=== PATIENT | female | born 1955 | race Caucasian/White ===

== ENCOUNTER 2020-08-02 18:54 | Emergency (ER) | payer OTHER, BC ==
[~2020-08-02] VITALS: Ht 165.1 cm; Wt 59.0 kg
[2020-08-02 19:03] VITALS: BP_SYST 108
[2020-08-02] MEDS ORDERED: ACETAMINOPHEN 500 MG TABLET PO ONE (19:30)
[2020-08-02] MEDS ORDERED: LIDOCAINE 1%, 20 ML MDV 20 ML ONE (19:49)
[2020-08-02] MEDS ORDERED: LIDOCAINE MPF 1% 50 MG/5 ML AMP INJ ONE (20:15)
[2020-08-02] MEDS ORDERED: DIPH-TET-PERTUS Vaccine 0.5 ML VIAL (ADACEL) I.M. ONE (20:15)
[2020-08-02 20:33] VITALS: BP_SYST 108
[2020-08-02] MEDS ORDERED: BACITRACIN 1 GM OINT TP ONE (20:46)
== END 2020-08-02 20:33 | disposition home or self-care (01) ==
LOC: SED 18:54
DX: S01.81XA Laceration without foreign body of other part of head, initial encounter (principal); I10 Essential (primary) hypertension; F10.10 Alcohol abuse, uncomplicated; W18.39XA Other fall on same level, initial encounter; Y93.89 Activity, other specified; Y92.89 Other specified places as the place of occurrence of the external cause; Y99.8 Other external cause status
CPT/HCPCS: 12013; 70450; 76376; 90471; 90715; 99284; J2001

== ENCOUNTER 2021-05-04 08:53 | Emergency (ER) | payer BC, OTHER ==
[~2021-05-04] VITALS: Ht 165.1 cm; Wt 59.0 kg
[2021-05-04 08:53] VITALS: BP_SYST 160
--- NOTE | 2021-05-04 08:53 | NUR ---
BROUGHT BACK TO BED #7 AND TRIAGED. REPORT GIVEN TO MERLYN
--- NOTE | 2021-05-04 09:00 | NUR ---
Pt brought by self, A&Ox4, pt presents to ER with R wrist and L thumb pain after falling few days ago while playing basketball, no open injuries noted, will cont to monitor
--- NOTE | 2021-05-04 09:10 | NUR ---
Dr Jeff evaluating patient at bedside
[2021-05-04] MEDS ORDERED: HYDR-3917 PO (09:28)
[2021-05-04] MEDS ORDERED: IBUP-1969 PO (09:28)
[2021-05-04 09:40] VITALS: BP_SYST 152
--- NOTE | 2021-05-04 09:41 | NUR ---
Patient given written and verbal discharge instructions and verbalizes understanding. ER MD discussed with patient the results and treatment provided. Patient in stable condition. ID arm band removed. Rx of Hydrocodone and Ibuprofen given. Patient educated on pain management and to follow up with PMD. Pain Scale 3/10 tolerable for patient. Opportunity for questions provided and answered. Medication side effect fact sheet provided.
== END 2021-05-04 09:41 | disposition home or self-care (01) ==
LOC: SED 08:53
DX: S52.502A Unspecified fracture of the lower end of left radius, initial encounter for closed fracture (principal); S62.512A Displaced fracture of proximal phalanx of left thumb, initial encounter for closed fracture; I10 Essential (primary) hypertension; W18.39XA Other fall on same level, initial encounter; Y93.89 Activity, other specified; Y92.89 Other specified places as the place of occurrence of the external cause; Y99.8 Other external cause status
CPT/HCPCS: 73140-TC; 99284

== ENCOUNTER 2022-08-20 05:14 | Inpatient (IN) | payer OTHER ==
[~2022-08-20] VITALS: Ht 165.1 cm; Wt 61.2 kg
[~2022-08-20 05:14] MED LIST: HYDR-3917 PO; IBUP-1969 PO
[2022-08-20 06:44] LABS: CALCIUM 9.1 mg/dL (8.4-11.0); CREATININE 1.1 mg/dL (0.55-1.30)
[2022-08-20 06:48] LABS: INR 0.9 (0.8-1.2); PROTHROMBIN TIME 9.6 SECS (9.5-12.5)
[2022-08-20] MEDS ORDERED: CEFAZOLIN SOD 2 GM in D5W 50 ML IV ONE (07:00)
[2022-08-20 07:24] LABS: BASOPHILS % (AUTO) 0.4 % (0.0-2.0); EOSINOPHILS # (AUTO) 0.3 K/uL (0.0-0.4); EOSINOPHILS % (AUTO) 3.2 % (0.0-4.0); HEMATOCRIT 30.3 % (36-48); HEMOGLOBIN 10.3 g/dL (12.0-16.0); LYMPHOCYTES # (AUTO) 1.1 K/uL (1.0-5.5); LYMPHOCYTES % (AUTO) 11.7 % (20.5-51.5); MEAN CORPUSCULAR HEMOGLOBIN 31 pg (27-31); MEAN CORPUSCULAR HGB CONC 34 % (32-36); MEAN CORPUSCULAR VOLUME 91 fL (79.0-98.0); MONOCYTES # (AUTO) 0.6 K/uL (0.0-1.0); MONOCYTES % (AUTO) 6.1 % (1.7-9.3); NEUTROPHILS # (AUTO) 7.1 K/uL (1.8-7.7); NEUTROPHILS % (AUTO) 78.6 % (40.0-70.0); PLATELET COUNT (AUTO) 448 K/uL (130-430); RED BLOOD CELL COUNT(AUTO) 3.31 MIL/uL (4.2-6.2); RED CELL DISTRIBUTION WIDTH 14.2 % (9.0-15.0)
[2022-08-20] MEDS ORDERED: BUPIVACAINE LIPOSOME/PF 266 MG/20 ML VIAL INFIL ONE (07:40)
[2022-08-20 07:48] LABS: BILIRUBIN,URINE NEGATIVE (NEGATIVE); BLOOD, URINE NEGATIVE (NEGATIVE); CLARITY/URINE CLEAR (CLEAR); COLOR,URINE YELLOW (YELLOW); GLUCOSE,URINE NEGATIVE (NEGATIVE); KETONES,URINE NEGATIVE (NEGATIVE); LEUKOCYTE ESTERASE ,URINE NEGATIVE (NEGATIVE); NITRITE, URINE NEGATIVE (NEGATIVE); PROTEIN URINE NEGATIVE (NEGATIVE)
[2022-08-20] MEDS ORDERED: FLUO40CA49 PO (08:10)
[2022-08-20] MEDS ORDERED: METO25TA3 PO (08:10)
[2022-08-20] MEDS ORDERED: BUPR300T55 PO (08:10)
[2022-08-20] MEDS ORDERED: LIP20 PO (08:10)
[2022-08-20] MEDS ORDERED: IBUPROFEN 600 MG TABLET PO ONE (10:15)
[2022-08-20] MEDS ORDERED: KETOROLAC TROMETHAMINE 30 MG VIAL IVP PRN (10:15)
[2022-08-20] MEDS ORDERED: NALOXONE HCL 0.4 MG/ML AMP (NARCAN) IVP PRN ×4 (10:15→11:45)
[2022-08-20] MEDS ORDERED: ONDANSETRON HCL 4 MG/2 ML VIAL IVP PRN ×2 (10:15→11:45)
[2022-08-20] MEDS ORDERED: HYDROmorphone 1 MG/ML INJ. CARTRIDGE IVP PRN ×2 (10:15→11:00)
[2022-08-20] MEDS ORDERED: LORATADINE 10 MG TABLET PO PRN (11:00)
[2022-08-20] MEDS ORDERED: traMADol HCL HCL 50 MG TABLET (ULTRAM) PO PRN (11:00)
[2022-08-20] MEDS ORDERED: oxyCODONE HCL 5 MG TABLET PO PRN ×2 (11:00)
[2022-08-20] MEDS ORDERED: NORMAL SALINE 10 ML VIAL ONE (11:14)
[2022-08-20] MEDS ORDERED: PROPOFOL 200MG/ 20ML VIAL (DIPRIVAN) IV ONE (11:14)
[2022-08-20] MEDS ORDERED: LR 1,000 ML IV.SOLN IV ONE (11:14)
[2022-08-20] MEDS ORDERED: SUCCINYLCHOLINE CHLORIDE 20 MG/ML(QUELICIN) ONE (11:14)
[2022-08-20] MEDS ORDERED: SEVOFLURANE 15 MIN GAS INH ONE (11:14)
[2022-08-20] MEDS ORDERED: MIDAZOLAM HCL 5 MG/ML VIAL (VERSED) IV ONE (11:14)
[2022-08-20] MEDS ORDERED: ROCURONIUM BROMIDE 10 MG/ML (ZEMURON) ONE (11:14)
[2022-08-20] MEDS ORDERED: ONDANSETRON HCL 4 MG/2 ML VIAL ONE (11:14)
[2022-08-20] MEDS ORDERED: NS IRRIG SOLN 1000 ML IR ONE (11:14)
[2022-08-20] MEDS ORDERED: VANCOMYCIN HCL 1000 MG/VIAL IV ONE (11:14)
[2022-08-20] MEDS ORDERED: TRANEXAMIC ACID 1,000 MG/10 ML VIAL ONE (11:14)
[2022-08-20] MEDS ORDERED: DIPHENHYDRAMINE HCL 25 MG CAPSULE PO PRN (11:45)
[2022-08-20] MEDS ORDERED: METOCLOPRAMIDE HCL 10 MG/2 ML VIAL IVP PRN (11:45)
[2022-08-20] MEDS ORDERED: LACTULOSE 20 GM/30 ML UDC PO PRN (11:45)
[2022-08-20] MEDS ORDERED: BISACODYL 10 MG/SUPPOSITORY RC PRN (11:45)
[2022-08-20] MEDS: NACL 0.9% 1,000 ML IV SCH ×2 (12:00→20:58)
[2022-08-20 12:45] VITALS: BP_SYST 150
[2022-08-20] MEDS ORDERED: VANCOMYCIN HCL 1 GM/NS PREMIX 250 ML IV ONE (13:00)
[2022-08-20] MEDS: ACETAMINOPHEN 500 MG TABLET PO SCH ×2 (14:07→20:50)
[2022-08-20] MEDS: KETOROLAC TROMETHAMINE 10 MG TABLET (TORADOL) PO SCH ×2 (14:09→20:50)
[2022-08-20] MEDS: ceFAZolin SODIUM 2 GM in D5W 50 ML IV SCH ×2 (14:10→20:58)
[2022-08-20 16:00] VITALS: BP_SYST 151
[2022-08-20] MEDS: HYDROmorphone 1 MG/ML INJ. CARTRIDGE IVP PRN ×2 (18:30→20:59)
[2022-08-20 20:00] VITALS: BP_SYST 131
[2022-08-20] MEDS: SENNOSIDES/DOCUSATE SODIUM 1 TAB TABLET(SENOKOT-S) PO SCH (20:50)
[2022-08-21] VITALS (7 sets, daily range): BP systolic 98–159
--- NOTE | 2022-08-21 00:30 | NUR ---
bladder scan done. pt has 375ml in bladder. pt seems to be having difficult time urinating. will continue to monitor.
[2022-08-21] MEDS: HYDROmorphone 1 MG/ML INJ. CARTRIDGE IVP PRN ×4 (01:51→19:26)
[2022-08-21] MEDS: NACL 0.9% 1,000 ML IV SCH (03:48)
[2022-08-21] MEDS: ceFAZolin SODIUM 2 GM in D5W 50 ML IV SCH (03:48)
[2022-08-21] MEDS: ACETAMINOPHEN 500 MG TABLET PO SCH ×4 (04:26→22:00)
[2022-08-21] MEDS: KETOROLAC TROMETHAMINE 10 MG TABLET (TORADOL) PO SCH (05:49)
--- NOTE | 2022-08-21 06:00 | NUR ---
pt has been able to urinate 2-3 times small amounts of urine. pt used bedpan. will endorse to day rn.
[2022-08-21 08:01] LABS: HEMATOCRIT 23.2 % (36-48); HEMOGLOBIN 7.8 g/dL (12.0-16.0)
[2022-08-21] MEDS: ASPIRIN 81 MG TAB.CHEW PO SCH ×2 (09:03→21:30)
[2022-08-21] MEDS: SENNOSIDES/DOCUSATE SODIUM 1 TAB TABLET(SENOKOT-S) PO SCH ×2 (09:03→21:38)
--- NOTE | 2022-08-21 20:00 | NUR ---
pt is alert and oriented x 4. follow command, has a sling for her shoulder. unsteady gait.
[2022-08-21] MEDS: CELECOXIB 200 MG CAPSULE PO SCH (21:33)
[2022-08-22 00:18] VITALS: BP_SYST 113
[2022-08-22] MEDS: HYDROmorphone 1 MG/ML INJ. CARTRIDGE IVP PRN ×3 (00:20→06:54)
[2022-08-22] MEDS: ASPIRIN 81 MG TAB.CHEW PO SCH (09:02)
[2022-08-22] MEDS: CELECOXIB 200 MG CAPSULE PO SCH (09:03)
[2022-08-22] MEDS: SENNOSIDES/DOCUSATE SODIUM 1 TAB TABLET(SENOKOT-S) PO SCH (09:03)
[2022-08-22] MEDS ORDERED: HYDR-3917 PO (09:25)
[2022-08-22] MEDS ORDERED: DOCU-144 PO (09:25)
[2022-08-22 11:30] VITALS: BP_SYST 112
--- NOTE | 2022-08-22 11:45 | NUR ---
0800: NO C/O ANY PAIN OR DISCOMFORT, RIGHT ARM IN SLING, NEURO AND SKIN BENEATH SLING INTACT, NO NUMBNESS OR TINGLING NOTED. 1110: PATIENT DISCHARGE HOME TO FOLLOW UP WITH LABORATORY VETERINARIAN AND SURGEON IN 1-2 WEEKS. PATIENT VERBALIZE UNDERSTANDING WILL COMPLY WITH INSTRUCTION GIVEN
== END 2022-08-22 11:10 | disposition home or self-care (01) | DRG 483 ==
LOC: SMU 05:14
PROVIDERS: ADMIT Orthopaedic Surgery Sports Medicine; ATTEND Orthopaedic Surgery Sports Medicine
PROC: 0PSH34Z Reposition Right Radius with Internal Fixation Device, Percutaneous Approach (ICD-10-PCS; 2022-08-20)
PROC: 0RRJ00Z Replacement of Right Shoulder Joint with Reverse Ball and Socket Synthetic Substitute, Open Approach (ICD-10-PCS; principal; 2022-08-20 07:52)
DX: S42.241A 4-part fracture of surgical neck of right humerus, initial encounter for closed fracture (principal); S52.131A Displaced fracture of neck of right radius, initial encounter for closed fracture; Z20.822 Contact with and (suspected) exposure to COVID-19; W17.89XA Other fall from one level to another, initial encounter; Y93.89 Activity, other specified; Y92.89 Other specified places as the place of occurrence of the external cause; Y99.8 Other external cause status
CPT/HCPCS: 36415; 71045; 76001; 80048; 81003; 83051; 85014; 85025; 85610-TC; 85730-TC; 87081; 88305; 88311; 96379; C1713; C1776; C9290; J0330; J0690; J1170; J2250; J2405; J2704; J3370; J3490; J7030; J7060; J7120